=== PATIENT | female | born 1950 | race Caucasian/White ===

== ENCOUNTER → 2018-11-10 13:10 | Outpatient (CLI) | payer MEDICARE, BC, SELFPAY ==
--- NOTE | 2018-11-10 13:16 | DI.MRI.S_ITS ---
PROCEDURE: MR LUMBAR SPINE WO CON INDICATIONS: eval TECHNIQUE: Noncontrast sagittal T1 spin echo and T2 fast echo, sagittal STIR, axial T1 and T2 fast spin echo through the lumbar spine. In cases with scoliosis, additional coronal T2 fast spin echo may be performed. COMPARISON: [facility], CR, XR LUMBAR SPINE MIN 4V, 11/10/2018, 13:44. FINDINGS: Image quality: Excellent. Alignment and Curvature: There is normal bony alignment. Bone Marrow: Marrow is of normal overall signal. No acute vertebral body compression fractures. Spinal Cord: Conus medullaris terminates at the L1 level. Visualized cord demonstrates normal signal and size. Paraspinous Soft Tissues: No paravertebral masses. L1-L2: Normal appearance except for minimal disc desiccation and disc height reduction without spinal or foraminal stenosis. L2-L3: Normal appearance. L3-L4: Moderate degenerative disc height reduction and disc desiccation with an anterior and posterior transverse disc bulge, and with mild facet osteoarthritis. This results in no significant spinal stenosis but there is asymmetric left slightly greater than right mild foraminal stenosis with potential for asymmetric impingement on the course of the left L3 nerve root. L4-L5: Degenerative disc disease is moderately severe with disc height reduction and desiccation and a posterior broad-based transverse disc bulge. Moderate bilateral facet osteoarthritis results in asymmetric left slightly greater than right foraminal stenosis with potential for asymmetric impingement on the course of the left L4 nerve root. L5-S1: Mild degenerative disc disease without spinal stenosis. Minimal facet osteoarthritis without foraminal stenosis. IMPRESSION: A herniated disc fragment is not found. There is degenerative disc disease but is relatively mild along the lumbosacral spine as discussed in detail by level in the body of the report above. There is only a small degree of spinal stenosis without associated nerve root impingement. Foraminal stenosis is present also to a relatively mild degree and slightly greater on the left than the right. Mild asymmetric impingement on the course of the left L and left L4 nerve roots appears present. Dictated by: Roger Jamil M.D. on 11/10/2018 at 16:49 Approved by: Roger Jamil M.D. on 11/10/2018 at 16:54
--- NOTE | 2018-11-10 13:16 | DI.MRI.S_ITS ---
PROCEDURE: MR CERVICAL SPINE WO CON INDICATIONS: eval TECHNIQUE: Noncontrast sagittal T1 spin echo and T2 fast spin echo, sagittal STIR, foraminal oblique sagittal T2 fast spin echo, and axial gradient echo or T2 fast spin echo through the cervical spine. COMPARISON: None. FINDINGS: Image quality: Excellent. Alignment and Curvature: Straightening of the normal cervical lordosis.. Bone Marrow: Postsurgical changes related to C5-C6 ACDF. There is chronic osseous fusion of the vertebral bodies. No acute fracture is seen. Spinal Cord: Visualized spinal cord has normal size and signal. No cerebellar tonsillar herniation. Paraspinous Soft Tissues: No paravertebral masses. Prevertebral soft tissues are normal in thickness. C2-C3: Normal appearance. C3-C4: Bilateral uncovertebral arthropathy and posterior intervening disc osteophyte complex, and bilateral facet arthropathy. Severe right foraminal narrowing with associated compression of the nerve root. Mild left foraminal stenosis C4-C5: Bilateral uncovertebral arthropathy and posterior intervening disc osteophyte complex, and bilateral facet disease. Mild right foraminal narrowing. Moderate left foraminal stenosis with associated compression of the nerve root. C5-C6: No canal stenosis identified. No right foraminal narrowing. Moderate left foraminal stenosis with associated compression of the nerve root C6-C7: Bilateral uncovertebral arthropathy and posterior intervening disc osteophyte complex, and bilateral facet disease. No definite canal stenosis. Minimal narrowing of the right neural foramen. Severe left foraminal stenosis and associated compression of the nerve root C7-T1: No canal stenosis. Mild bilateral foraminal narrowing IMPRESSION: Multilevel cervical spondylosis and postsurgical changes at C5-C6 as above. No high-grade canal stenosis. Mild C4-C5 canal narrowing. Diffuse bilateral foraminal stenoses as detailed above by spinal level. Dictated by: Malcolm Maxwell M.D. on 11/10/2018 at 15:52 Approved by: Malcolm Maxwell M.D. on 11/10/2018 at 16:02
--- NOTE | 2018-11-10 13:26 | DI.RAD.S_ITS ---
PROCEDURE: XR CERVICAL SPINE 4V OR 5V INDICATIONS: eval TECHNIQUE: 5 views of the cervical spine acquired, including both obliques. COMPARISON: None. FINDINGS: Bones: No fractures or dislocations to the T1 level. Oblique images demonstrate no bony foraminal stenoses. Prior C5-C6 fusion by anterior fusion plate and bilateral anterior vertebral body screws with interbody bone graft showing fusion at this time. Facet osteoarthritis is moderately severe at C6-C7, with posterior projecting osteophytes. Significant foraminal stenosis at C6-7 would be expected bilaterally. Moderately severe foraminal stenosis likely is present also at C5-6 bilaterally. Soft tissues: No prevertebral soft tissue swelling. IMPRESSION: No acute trauma found. Chronic fusion of C5-6 by anterior fusion plate and transverse screws. Moderately severe C6-C7 facet osteoarthritis contributes to presence of significant foraminal stenosis at that level, symmetric bilaterally. Moderately severe C5-C6 foraminal stenosis also appears present on the oblique views. Dictated by: Roger Jamil M.D. on 11/10/2018 at 14:22 Approved by: Roger Jamil M.D. on 11/10/2018 at 14:24
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
--- NOTE | 2018-11-10 13:26 | DI.RAD.S_ITS ---
PROCEDURE: XR LUMBAR SPINE MIN 4V INDICATIONS: eval TECHNIQUE: 4 views of the lumbar spine were acquired. COMPARISON: None. FINDINGS: Bones: 5 nonrib-bearing vertebrae are present. There is normal bony alignment. No vertebral body compression fractures. No suspicious bony lesions. There is mild degenerative disc height reduction at L3-4 and mild to moderate such degeneration at L4-5 and L5-S1. Facet osteoarthritis is mild to moderate and becomes progressively more prominent from L.3-4 through L.5-S1. Soft tissues: Overlying bowel gas pattern is normal. No suspicious soft tissue calcifications. Oblique images: No pars defects. IMPRESSION: Mild to moderate degenerative disc disease and facet osteoarthritis of the lower half of the lumbosacral line with potential for mild spinal and foraminal stenosis best seen at L5-S1. Dictated by: Roger Jamil M.D. on 11/10/2018 at 14:24 Approved by: Roger Jamil M.D. on 11/10/2018 at 14:25
== END ==
PROVIDERS: PCP Internal Medicine; Visit Provider Physical Medicine & Rehabilitation
DX: M47.12 Other spondylosis with myelopathy, cervical region (principal); M51.17 Intervertebral disc disorders with radiculopathy, lumbosacral region; M48.07 Spinal stenosis, lumbosacral region; M48.02 Spinal stenosis, cervical region; M47.27 Other spondylosis with radiculopathy, lumbosacral region; M51.34 Other intervertebral disc degeneration, thoracic region; Z98.1 Arthrodesis status
CPT/HCPCS: 72050; 72072; 72110; 72141; 72148

== ENCOUNTER → 2021-08-12 11:45 | Outpatient (CLI) | payer MEDICARE, BC, SELFPAY ==
[2021-08-12 15:08] LABS: COVID19 -Nasal RAPID Negative (Negative)
== END ==
PROVIDERS: PCP Internal Medicine; Referring Provider Nurse Practitioner Family; Visit Provider Nurse Practitioner Family
DX: Z01.812 Encounter for preprocedural laboratory examination (principal); Z20.822 Contact with and (suspected) exposure to COVID-19
CPT/HCPCS: 87635; C9803

== ENCOUNTER 2021-08-13 13:53 | Day surgery (SDC) | payer MEDICARE, BC, SELFPAY ==
--- NOTE | 2021-08-13 | PATH_ITS ---
[facility] Accession Number: [id number] . 01 Material submitted: . PART A: stomach - BIOPSY ANTRUM STOMACH PART B: colon - TRANSVERSE COLON POLYP . 01 Diagnosis: A. Gastric Antrum, Biopsy: Gastric antral mucosa with minimal chronic inflammation. Negative for Helicobacter organisms by immunohistochemistry. Negative for intestinal metaplasia. Negative for dysplasia or malignancy. . B. Transverse Colon Polyp, Biopsy: Tubular adenoma. [facility] 08/16/2021 1800 Local . 01 Electronically signed: . Steve Howard MD, PhD, Pathologist NPI- [id number] . 01 Gross description: . Part A: BIOPSY ANTRUM STOMACH: Received in formalin is 1 fragment(s) of hancock, soft tissue measuring 0.3 x 0.3 x 0.2 cm submitted entirely in 1 cassette(s) Part B: TRANSVERSE COLON POLYP: Received in formalin is 1 fragment(s) of hancock, soft tissue measuring 0.4 x 0.3 x 0.2 cm submitted entirely in 1 cassette(s) /PIOTR 08/14/20211951 Local . 01 Microscopic: . A. An immunohistochemical stain was performed to evaluate for Helicobacter organisms and is negative. The control stain showed appropriate reactivity. . * This test was developed and its performance characteristics determined by [facility]. It has not been cleared or approved by the U.S. Food and Drug Administration. The FDA has determined that such clearance or approval is not necessary. This test is used for clinical purposes. It should not be regarded as investigational or for research. . 01 Pathologist provided ICD-10: K29.70, D12.3 . 01 CPT . 872954, 831580, L32374 Performed at: 01 [facility] [address] [address], [place], [place] [id number] MD Joseluis Nieves MD Phone: [phone]
[2021-08-13 14:14] VITALS: BP 164/83; PULSE 88; RESP 16; TEMP 36.8; O2SAT 98; BMI 27.7
--- NOTE | 2021-08-13 14:16 | PM.HP.1 ---
History of Present Illness History of Present Illness Date Patient Seen: 08/13/21 Time Patient Seen: 14:16 Chief complaint: EGD/COLONOSCOPY Narrative: I reviewed my note from July 15, 2021 no significant changes with the exception of 50% improvement on Prilosec. Patient History Medical History Asthma Chronic back pain Depression Helicobacter pylori (H. pylori) infection Hemorrhoids HTN (hypertension) Surgical History Hx of appendectomy Hx of cervical spine surgery Meds Home Medications and Allergies Home Medications Medication Instructions Recorded Confirmed Type hydrochlorothiazide 25 mg tablet 25 mg PO DAILY 10/28/18 08/13/21 History losartan 100 mg tablet 100 mg PO DAILY 10/28/18 08/13/21 History celecoxib 200 mg capsule (Celebrex) 200 mg PO DAILY #30 cap 04/13/19 08/13/21 Rx albuterol sulfate 90 mcg/actuation 1 inh INHALATION Q4-6H PRN 08/13/21 08/13/21 History breath activated powder inhaler,sensor (Proair Digihaler) bupropion HCl 150 mg tablet,12 hr 150 mg PO DAILY 08/13/21 History sustained-release calcium carbonate 200 mg calcium 200 mg PO PRN PRN 08/13/21 08/13/21 History (500 mg) chewable tablet (Tums) cetirizine 5 mg tablet 5 mg PO DAILY PRN 08/13/21 08/13/21 History naproxen 250 mg tablet 250 mg PO BID PRN 08/13/21 08/13/21 History omeprazole 20 mg tablet,delayed 20 mg PO BID 08/13/21 08/13/21 History release Allergies Allergy/AdvReac Type Severity Reaction Status Date / Time cephalexin [From Keflex] Allergy Hives Verified 08/13/21 13:49 codeine Allergy Hives Verified 08/13/21 13:49 Penicillins Allergy Hives Verified 08/13/21 13:49 Review of Systems Review of Systems ROS: Yes All systems reviewed with the patient and are negative except as otherwise documented Exam Const General: cooperative and comfortable Orientation: alert HENMT Head: normocephalic Ears: external ears normal Nose: external nose normal Face and sinus: normal facial exam Mouth: oral mucosae normal Eyes General: appearance normal, both eyes and all related structures Neck Neck: normal visual inspection Chest Chest: normal inspection of the chest Resp Effort & Inspection: normal respiratory effort Cardio Rate: regular rate Heart Sounds: murmur GI Inspection: normal to inspection Skin General: no rashes or lesions noted and No jaundice Neuro General: patient alert and moves all extremities Cognition: normal cognition Speech: speech normal Extrem General: no pedal edema Psych Appearance: grossly normal Assessment & Plan Assessment & Plan narrative: 71-year-old female with epigastric pain partially responsive to PPI. She is also indicated for colon cancer screening. EGD and colonoscopy are pursued today. Time Spent With Patient Critical Care time: I spent a total of [] minutes of critical care time on this patient's care today; this time is exclusive of procedural time.
--- NOTE | 2021-08-13 14:18 | PM.PREOP ---
Pre-operative Note COVID-19 COVID-19 status: Negative Result date/Date tested (Pos, Neg/Pending): 08/12/21 Interval Note History & Physical reviewed/Exam performed by Physician: Yes Changes to H&P: No ASA Class (for procedural sedation): II
[2021-08-13] MEDS: SODIUM CHLORIDE 0.9% 1,000 ML 84 ML IV (14:38)
--- NOTE | 2021-08-13 15:07 | PM.OP.EC ---
Operative Date/Time/Diagnoses Date of procedure: 08/13/21 Time of procedure: 15:07 Pre-op diagnosis: Epigastric pain he indicated for colon cancer screening. Post-op diagnosis: same Procedure & Clinicians Study performed: EGD with biopsies and colonoscopy with hot snare polypectomy Same procedure as scheduled: Yes Indications: Epigastric pain indicated for colon cancer screening. Surgeon: Raul Chun Procedure Notes SCOAP/Timeout: Done Procedure in detail: After the risks and benefits were explained, written and verbal informed consent was obtained. The patient was brought into the procedure room and placed into the left lateral decubitus position. Please see nurse orange picker machine operator notes for sedation details. The scope was introduced into the mouth through the bite block and advanced under direct visualization to the 2nd portion of the duodenum. The scope was slowly withdrawn carefully examining the mucosa for any defects or lesions. Retroflexed views were accomplished in the stomach. The stomach was decompressed, the scope was then removed from the patient who tolerated the procedure well. The patient was then turned around a digital rectal examination accomplished no significant pathology appreciated mild internal external nonbleeding nonthrombosed hemorrhoids. The scope was introduced into the rectum and advanced to the cecum as identified by the appendiceal orifice and ileocecal valve. The scope was slowly withdrawn to carefully examine the mucosa for any defects or lesions. Multiple direct views were made through the dentate line for exclusion of pathology the colon was decompressed scope removed the patient tolerated the procedure well. Bowel prep adequate Pediatric colonoscope. Scope withdrawal time: 7 minutes Sedation minutes: 19 Complications: none Impression: 1. Duodenum: This appeared visually normal from the bulb through the 2nd portion. 2. Stomach: Minimal gastropathy was appreciated and random biopsies were taken from the antrum for exclusion of Helicobacter pylori or other pathology. No ulcers no outlet obstruction no mass lesions. Retroflexed views of the LES were unremarkable. 3. Esophagus: The squamocolumnar junction correlated with the top of the gastric folds. GEJ was at about 41 cm from the incisors. No features of acute erosive esophagitis no significant esophageal pathology appreciated throughout. 4. Colon: There was some mild diverticulosis in the left colon. In the transverse there was an approximately 6-7 mm sessile polyp removed with hot snare. No other significant mucosal pathology was appreciated throughout. Endoscopic diagnosis 1. Mild gastropathy 2. Otherwise visually unremarkable EGD 3. Small colon polyp 4. Diverticulosis 5. Grade 2 internal hemorrhoids Post-procedure Plan for aftercare: 1. Await histopathology 2. Repeat colonoscopy in 5 years. 3. For now continue omeprazole and follow up in GI clinic in 6-8 weeks. Disposition: PACU
[2021-08-13 15:12] VITALS: BP 122/51; PULSE 70; RESP 13; TEMP 36.6; O2SAT 95
[2021-08-13 15:17] VITALS: BP 117/62; PULSE 72; RESP 11; TEMP 36.6; O2SAT 96
[2021-08-13 15:22] VITALS: BP 137/76; PULSE 72; RESP 13; O2SAT 94
[2021-08-13 15:27] VITALS: BP 148/76; PULSE 69; RESP 16; O2SAT 96
[2021-08-13 15:34] VITALS: BP 148/75; PULSE 71; RESP 15; O2SAT 98
== END 2021-08-13 15:40 | disposition home or self-care (01) ==
PROVIDERS: PCP Internal Medicine; Referring Provider Internal Medicine Gastroenterology; Visit Provider Internal Medicine Gastroenterology
PROC: 0DJ08ZZ Inspection of Upper Intestinal Tract, Via Natural or Artificial Opening Endoscopic (ICD-10-PCS; CPT 43235; principal; 2021-08-13 14:30)
PROC: 0DJD8ZZ Inspection of Lower Intestinal Tract, Via Natural or Artificial Opening Endoscopic (ICD-10-PCS; CPT 45378; 2021-08-13 14:30)
DX: Z12.11 Encounter for screening for malignant neoplasm of colon (principal); Z87.19 Personal history of other diseases of the digestive system; I10 Essential (primary) hypertension; J45.909 Unspecified asthma, uncomplicated; F32.9 Major depressive disorder, single episode, unspecified; K31.9 Disease of stomach and duodenum, unspecified; K57.30 Diverticulosis of large intestine without perforation or abscess without bleeding; K64.0 First degree hemorrhoids; K29.50 Unspecified chronic gastritis without bleeding; D12.3 Benign neoplasm of transverse colon
CPT/HCPCS: 45385; 43239; J2704

== ENCOUNTER → 2022-05-08 12:10 | Outpatient (CLI) | payer MEDICARE, BC, SELFPAY ==
[2022-05-08 13:28] LABS: Hematocrit 32.6 % (36-46); Hemoglobin 10.6 g/dL (12.0-16.0); Mean Corpuscular HGB Conc 32.5 % (30-36); Mean Corpuscular Hemoglobin 29.1 PG (26-34); Mean Corpuscular Volume 89.4 fL (80-100); Platelet Count 235 X10^3/uL (150-400); Red Blood Cell Count 3.64 X10^6/uL (4.0-5.2); Red Cell Distribution Width 14.7 % (11.6-14.8); White Blood Cell Count 9.1 X10^3/uL (4.5-11.0)
[2022-05-08 13:48] LABS: Alanine Aminotransferase 17 IU/L (<35); Albumin Globulin Ratio 1.3 (1.0-2.8); Alkaline Phosphatase 95 U/L (38-126); Aspartate Aminotransferase 27 IU/L (14-36); BUN Creatinine Ratio 19.2 (6-22); Bilirubin Total 0.4 mg/dL (0.2-1.3); Blood Urea Nitrogen 20 mg/dL (7-17); Calcium 9.7 mg/dL (8.4-10.2); Carbon Dioxide 24 mmol/L (22-32); Chloride 103 mmol/L (98-107); Estimated Glomerular Filt Rate 58 mL/min (>60); Globulin 3.1 g/dL (1.7-4.1); Glucose 89 mg/dL (80-110); HEMOLYSIS 23 (0-50); Potassium 4.4 mmol/L (3.4-5.1); Sodium 139 mmol/L (137-145); Total Protein 7.1 g/dL (6.3-8.2)
== END ==
PROVIDERS: PCP Internal Medicine; Referring Provider Nurse Practitioner; Visit Provider Nurse Practitioner
DX: Z98.890 Other specified postprocedural states (principal)
CPT/HCPCS: 36415; 80053; 85027